=== PATIENT | male | born 1975 | race Hispanic/Latino ===

== ENCOUNTER 2018-04-20 10:17 | Emergency (ER) | payer SELFPAY ==
[2018-04-20 11:03] VITALS: BP 132/75
[2018-04-20] MEDS ORDERED: RABAVERT RABIES VACCINE(PCEC) IM ONE (11:44)
[2018-04-20] MEDS ORDERED: BOOSTRIX IM ONE (11:44)
[2018-04-20] MEDS ORDERED: hyperRAB S/D IM ONE (11:44)
[2018-04-20] MEDS ORDERED: MOTRIN PO ONE (11:44)
--- NOTE | 2018-04-20 11:52 | Emergency Department Report ---
ED Animal Bite HPI - General Chief Complaint: Animal Bite Stated Complaint: RT LEG PIT BITE/PAIN Time Seen by Provider: 04/20/18 11:38 Source: patient Mode of arrival: Ambulatory Limitations: No Limitations - History of Present Illness Initial Comments: This is a 43-year-old male nontoxic in appearance with no signs of distress presents to the ED with complaint of dog bite to right calf area that occurred last night. He stated that dog is known that is a neighbor's dog. Patient stated that neighbor did state that the patient is up-to-date on vaccines but he is uncertain himself. Patient that he wants to be treated with series of rabies vaccines. Patient denies follow up with a provider. Patient denies any pus, drainage, fever, chills, nausea, vomiting, chest pain, shortness of breath. Patient denies decreased sensation or range of motion. Patient denies any allergies or significant past medical history. Patient stated that animal control has been notified and was at scene. MD Complaint: animal bite -: Last night Animal: dog Animal Control Notified: Yes Description: household pet Mechanism: bite Severity scale (0 -10): 8 Context: unprovoked Associated Symptoms: erythema. denies: discharge from wound, bleeding, fever, chills, rash, loss of consciousness, cough, headache, diaphoresis, shortness of breath Treatments Prior to Arrival: wound dressing(s) - Related Data Patient Tetanus UTD: No Previous Rx's Medication Instructions Recorded Last Taken Type Acetaminophen/Codeine [Tylenol 1 tab PO Q6H PRN #12 tab 04/20/18 Unknown Rx /Codeine # 3 tab] Amoxicillin/K Clav Tab [Augmentin 1 tab PO Q12HR #20 tab 04/20/18 Unknown Rx 875 mg] Ibuprofen [Motrin] 600 mg PO Q8H PRN #30 tablet 04/20/18 Unknown Rx ED Review of Systems ROS: Stated complaint: RT LEG PIT BITE/PAIN Other details as noted in HPI Constitutional: denies: chills, fever Eyes: denies: eye pain, eye discharge, vision change ENT: denies: ear pain, throat pain Respiratory: denies: cough, shortness of breath, wheezing Cardiovascular: denies: chest pain, palpitations Endocrine: no symptoms reported Gastrointestinal: denies: abdominal pain, nausea, diarrhea Genitourinary: denies: urgency, dysuria Musculoskeletal: denies: back pain, joint swelling, arthralgia Skin: denies: rash, lesions Neurological: denies: headache, weakness, paresthesias Psychiatric: denies: anxiety, depression Hematological/Lymphatic: denies: easy bleeding, easy bruising ED Past Medical Hx - Past Medical History Hx Psychiatric Treatment: Yes (depression, schezophrenia) - Surgical History Past Surgical History?: No - Social History Smoking Status: Current Every Day Smoker Substance Use Type: Alcohol, Marijuana - Medications Home Medications: Home Medications Medication Instructions Recorded Confirmed Last Taken Type Acetaminophen/Codeine [Tylenol 1 tab PO Q6H PRN #12 tab 04/20/18 Unknown Rx /Codeine # 3 tab] Amoxicillin/K Clav Tab [Augmentin 1 tab PO Q12HR #20 tab 04/20/18 Unknown Rx 875 mg] Ibuprofen [Motrin] 600 mg PO Q8H PRN #30 tablet 04/20/18 Unknown Rx ED Physical Exam - General Limitations: No Limitations General appearance: alert, in no apparent distress - Head Head exam: Present: atraumatic, normocephalic - Eye Eye exam: Present: normal appearance Pupils: Present: normal accommodation - ENT ENT exam: Present: mucous membranes moist - Neck Neck exam: Present: normal inspection - Respiratory Respiratory exam: Present: normal lung sounds bilaterally. Absent: respiratory distress - Cardiovascular Cardiovascular Exam: Present: regular rate, normal rhythm. Absent: systolic murmur, diastolic murmur, rubs, gallop - GI/Abdominal GI/Abdominal exam: Present: soft, normal bowel sounds - Rectal Rectal exam: Present: deferred - Extremities Exam Extremities exam: Present: normal inspection, full ROM, tenderness, normal capillary refill, other (dog pite to right calf present. No pus or drainge. Neurovascular intact.). Absent: joint swelling - Back Exam Back exam: Present: normal inspection, full ROM - Neurological Exam Neurological exam: Present: alert, oriented X3 - Psychiatric Psychiatric exam: Present: normal affect, normal mood - Skin Skin exam: Present: warm, dry, intact, normal color. Absent: rash ED Course Vital Signs 04/20/18 10:58 Temperature 98.8 F Pulse Rate 79 Respiratory 16 Rate Blood Pressure 132/75 O2 Sat by Pulse 96 Oximetry - Reevaluation(s) Reevaluation #1: 04/20/18 11:52 Patient is speaking in full sentences with no signs of distress noted. Critical care attestation.: If time is entered above; I have spent that time in minutes in the direct care of this critically ill patient, excluding procedure time. ED Disposition Clinical Impression: Dog bite Qualifiers: Encounter type: initial encounter Qualified Code(s): W54.0XXA - Bitten by dog, initial encounter Disposition: -01 TO HOME OR SELFCARE Is pt being admited?: No Does the pt Need Aspirin: No Condition: Stable Instructions: Animal Bite (ED), Acetaminophen/Codeine (By mouth) Additional Instructions: Follow-up with a primary care doctor in 3-5 days or if symptoms worsen and continue return to emergency room as soon as possible. Do not operate any machinery while taking Tylenol with codeine as this may cause drowsiness. Finish the full rabies vaccines on days 04/23/2018, 04/30/2018, and 05/07/2018. Prescriptions: Acetaminophen/Codeine [Tylenol /Codeine # 3 tab] 1 tab PO Q6H PRN #12 tab PRN Reason: Pain , Severe (7-10) Amoxicillin/K Clav Tab [Augmentin 875 mg] 1 tab PO Q12HR #20 tab Ibuprofen [Motrin] 600 mg PO Q8H PRN #30 tablet PRN Reason: Pain Referrals: PRIMARY CAREMD [Primary Care Provider] - 3-5 Days MICHAEL SEVERINO MD [Staff Physician] - 3-5 Days [facility] [Outside] - 3-5 Days [facility] [Outside] - 3-5 Days Forms: Work/School Release Form(ED) ED Medical Decision Making - Medical Decision Making This is a 43-year-old male that presents dog bite with wound. Patient is stable and was examined by me. The wound has been cleaning with soap and water. Sterile dressing has been applied. Patient received rabies vaccines, rabies without tetanus. Patient was instructed to finish the rabies vaccines on the 3, 7 and 14. Patient received information and places where it rabies vaccines series are provided. Patient discharged with Augmentin and Tylenol codeine. Patient was referred to Follow-up with a primary care doctor in 3-5 days or if symptoms worsen and continue return to emergency room as soon as possible. At time of discharge, the patient does not seem toxic or ill in appearance. No acute signs of distress noted. Patient agrees to discharge treatment plan of care. No further questions noted by the patient.
== END 2018-04-20 12:45 | disposition home or self-care (01) ==
LOC: ED 10:17
DX: S81.851A Open bite, right lower leg, initial encounter (principal); F20.9 Schizophrenia, unspecified; F32.9 Major depressive disorder, single episode, unspecified; F17.200 Nicotine dependence, unspecified, uncomplicated; F12.10 Cannabis abuse, uncomplicated; W54.0XXA Bitten by dog, initial encounter; Y93.89 Activity, other specified; Y92.89 Other specified places as the place of occurrence of the external cause; Y99.8 Other external cause status
CPT/HCPCS: 90375; 90471; 90472; 90675; 90715; 96372; 99282